=== PATIENT | male | born 1940 | race African-American/Black ===

== ENCOUNTER 2025-05-09 00:11 | Inpatient (IN) ==
[2025-05-09 00:47] LABS: Hematocrit (blood only) 43.4 % (42.0-52.0); Hemoglobin 14.7 g/dl (14.0-18.0); Immature Granulocytes # (auto) 0.02 K/uL (0.01-0.20); Immature Granulocytes % (auto) 0.2 %; Mean Corpuscular Hemoglobin 31.3 pg (25.0-34.0); Mean Corpuscular Volume 92.3 fL (80.0-100.0); Platelet Count 198 K/uL (130-400); RDW Standard Deviation 45.0 fL (36.4-46.3); Red Blood Count 4.70 M/uL (4.70-6.10); White Blood Count 8.71 K/ul (4.8-10.8)
[2025-05-09 01:03] LABS: Alanine Aminotransferase 14.0 U/L (7-52); Albumin Globulin Ratio 1.0 (0.9-2); Albumin Level 3.7 gm/dl (3.4-5.0); Alkaline Phosphatase 70.0 U/L (34-104); Anion Gap 10.0 (3-11); Bilirubin,Total 0.7 mg/dl (0.2-1.0); Blood Urea Nitrogen 19.0 mg/dl (6-23); Calcium 9.0 mg/dl (8.6-10.3); Carbon Dioxide 25.0 mmol/L (21-32); Chloride 102.0 mmol/L (98-107); Creatinine Clr Calc Pharmacy 40.2 ml/min; Globulin 3.6 gm/dl (2.5-4.0); Glucose 109.0 mg/dl (70-99(Fasting)); Lipase 10.0 U/L (11-82); Magnesium 1.7 mg/dl (1.7-2.4); Potassium 4.1 mmol/L (3.5-5.1); Sodium 137.0 mmol/L (136-145); Total Protein 7.3 gm/dl (6.0-8.3)
[2025-05-09] MEDS: SODIUM CHLORIDE 0.9% 1,000 ML IV ONE ×2 (01:03→05:05)
[2025-05-09] MEDS: MoRPHine SULFATE 2 MG/ML CARP IV STA (01:03)
[2025-05-09] MEDS: ONDANSETRON INJ 2 MG/ML 2 ML VIAL IV STA (01:03)
[2025-05-09] MEDS: OPTIRAY 320 100ml IV ONE (01:15)
[2025-05-09 01:17] LABS: INR 1.1 (0.9-1.1); Prothrombin Time 11.4 Seconds (9.0-12.0)
--- NOTE | 2025-05-09 01:35 | Emergency Department Note ---
Impression & Plan Hypertensive emergency, Abdominal pain, Nausea & vomiting, Elevated troponin ED Provider Note HISTORY OF PRESENT ILLNESS: Patient is an 84-year-old male presenting with abdominal pain, nausea and vomiting. Patient reports he has been having generalized abdominal pain and intermittent episodes of nausea and vomiting for the last 4 days. He denies any history of abdominal surgeries. He was given Zofran and fluids at the [facility] but had continued symptoms and was brought to the emergency department. Patient denies any chest pain or shortness of breath. He denies any DVT or PE history. Denies any history of cardiac stents. He rates his pain in the emergency department a 4 out of 10 and describes it as a pressure pain throughout his abdomen. He states that the pain is worse when he vomits. He states he has not had much to eat or drink in the last few days secondary to his nausea and vomiting. ROS: as above PHYSICAL EXAM: Constitutional: Patient appears in no acute distress. HENT: Head: Normocephalic and atraumatic. Eyes: EOMI, PERRL Mouth/Throat: Mucous membranes moist. Neck: Trachea midline. Neck supple. Cardiovascular: Tachycardic with regular rhythm. No murmurs, rubs or gallops. Intact distal pulses. Pulmonary/Chest: No respiratory distress. Breath sounds clear and equal bilaterally. No wheezes or rales. Abdominal: Abdomen soft, no rebound or guarding. Diffuse TTP Musculoskeletal: No edema, tenderness or deformity noted. Skin: Warm and dry. No rash, erythema, pallor or cyanosis Psychiatric: Appropriate mood and affect for situation. Neurological: Alert and keenly responsive. CN II-XII grossly intact, moving all extremities equally and fully. MDM: - Vitals signs showed hypertension and tachycardia - History obtained via patient. History as above. - Chronic conditions affecting care: HTN - Differential diagnoses include, but are not limited to: ACS; bowel obstruction; cholecystitis; appendicitis; colitis; viral syndrome; electrolyte abnormality; aortic dissection - Order placed for continuous cardiac monitoring. At this time, monitor showed rate of 110 bpm with normal sinus rhythm, per my interpretation. - External medical records reviewed. - EKG image interpreted by myself showed normal sinus rhythm. Rate 96 bpm. QT 348. No acute ischemic changes. - Laboratory workup interpreted by myself showed normal WBC; normal PT/INR; elevated creatinine (Cr 1.41 - uknown baseline); elevated troponin (90.8); normal lactate - CT abdomen/pelvis with IV contrast showed prostatomegaly. Noted to have uniform wall thickening of the bladder concerning for prostatic obstruction. Cecum is distended with fecal and gaseous loading with the distal colon fecally loaded. No bowel obstruction present. - UA negative for infection - Repeat troponin elevated but downtrending at 82.6 - Patient given 4 mg IV zofran, 1L NS and 4 mg IV morphine in ER. - On reassessment, his abdominal pain has improved, but he is noted to be profoundly hypertensive, with systolic blood pressures of over 200 systolic. He is started on a Cardene drip with improvement of his pressures to 160-180. Patient does have evidence of endorgan damage from his hypertension, given his elevated troponin and elevated creatinine. Will admit to hospitalist service. - Discussion was had with case technician about patient's case and need for admission - Hospitalist, Dr. Barajas, consulted for admission at 03:00 - Patient admitted to [facility] hospitalist service for further evaluation and management. I have personally spent 61 minutes of critical care time in the direct management of this patient. This includes bedside care, interpretation of diagnostic studies, and testing, discussion with consultants, patient, and family members, and other required patient management activities. This 61 minutes is in excess of all separately billable procedures. ASSESSMENT AND PLAN: Diagnosis: hypertensive emergency; abdominal pain; nausea and vomiting; elevated troponin Plan: admit Past Med/Surg History Problem List (Updated 05/09/25 @ 02:51 by Analilia Dent MD) Elevated troponin (Acute) Nausea & vomiting (Acute) Abdominal pain (Acute) Hypertensive emergency (Acute) Social History Smoking Status: Former smoker Preferred Language: Italian Feels Safe at Home: Yes Allergies Allergies Allergy/AdvReac Type Severity Reaction Status Date / Time No Known Allergies Allergy Verified 05/09/25 00:42 Home Meds Home Medications Medication Instructions Recorded Confirmed abacavir 600 mg-dolutegravir 50 1 tab PO DAILY 09/01/23 05/09/25 mg-lamivudine 300 mg tablet (Triumeq) aspirin 81 mg capsule 81 mg PO DAILY 09/01/23 05/09/25 cholecalciferol (vitamin D3) 25 50 mcg PO DAILY 09/01/23 05/09/25 mcg (1,000 unit) capsule levothyroxine 75 mcg capsule 75 mcg PO DAILY 09/01/23 05/09/25 lisinopril 20 mg tablet 20 mg PO DAILY 09/01/23 05/09/25 pravastatin 20 mg tablet 20 mg PO HS 09/01/23 05/09/25 tamsulosin 0.4 mg capsule 0.8 mg PO HS 09/01/23 05/09/25 lidocaine 5 % topical ointment 1 applic topical BID 05/09/25 05/09/25 meloxicam 7.5 mg tablet 7.5 mg PO BID 05/09/25 05/09/25 methyl salicylate-menthol 29 %-7.6 1 applic topical BID PRN Pain 05/09/25 05/09/25 % topical ointment (Icy Hot) multivitamin-minerals 1 tab PO DAILY 05/09/25 05/09/25 no.36-iron,carbonyl-FA 16 mg iron-0.38 mg tablet vitamin A and D 1 applic topical BID 05/09/25 05/09/25 Results & Data (ED) Vital Signs Vital Signs - 24 hr 05/09/25 00:14 05/09/25 01:42 05/09/25 01:52 Temperature 36.5 C Temperature Source Temporal Artery Scan Pulse Rate 111 H 107 H 105 H Pulse Rate from SpO2 Sensor 106 H Respiratory Rate 20 19 Respiratory Depth Normal Blood Pressure 214/98 H Blood Pressure Mean 136 Pulse Oximetry 100 95 Oxygen Delivery Method Room Air Sepsis Recent Fever Within 48 Hours No Sepsis New/Unexplained Change in Mental Status N/A Sepsis Action Taken by Nursing No Action Required 05/09/25 01:53 05/09/25 01:53 05/09/25 01:54 Temperature Temperature Source Pulse Rate 109 H Pulse Rate from SpO2 Sensor 110 H Respiratory Rate 18 Respiratory Depth Blood Pressure 207/120 H 207/120 H Blood Pressure Mean 128 128 Pulse Oximetry 98 Oxygen Delivery Method Sepsis Recent Fever Within 48 Hours Sepsis New/Unexplained Change in Mental Status Sepsis Action Taken by Nursing 05/09/25 01:57 05/09/25 02:12 05/09/25 02:30 Temperature Temperature Source Pulse Rate 107 H 103 H 102 H Pulse Rate from SpO2 Sensor 102 H Respiratory Rate 19 20 21 Respiratory Depth Blood Pressure 205/108 H 191/101 H 161/102 H Blood Pressure Mean 140 131 121 Pulse Oximetry 97 96 Oxygen Delivery Method Sepsis Recent Fever Within 48 Hours Sepsis New/Unexplained Change in Mental Status Sepsis Action Taken by Nursing 05/09/25 02:30 05/09/25 02:30 05/09/25 02:33 Temperature Temperature Source Pulse Rate 113 H Pulse Rate from SpO2 Sensor 110 H Respiratory Rate 21 Respiratory Depth Blood Pressure 161/102 H 161/102 H Blood Pressure Mean 118 118 Pulse Oximetry 93 Oxygen Delivery Method Sepsis Recent Fever Within 48 Hours Sepsis New/Unexplained Change in Mental Status Sepsis Action Taken by Nursing Laboratory Data 05/09/25 00:18 05/09/25 00:18 Lab Results 05/09/25 05/09/25 05/09/25 Range/Units 00:18 00:30 01:22 WBC 8.71 (4.8-10.8) K/ul RBC 4.70 (4.70-6.10) M/uL Hgb 14.7 (14.0-18.0) g/dl Hct 43.4 (42.0-52.0) % MCV 92.3 (80.0-100.0) fL MCH 31.3 (25.0-34.0) pg MCHC 33.9 (32.0-36.0) g/dL RDW Std Deviation 45.0 (36.4-46.3) fL RDW Coeff of Shelia 13.2 (11.5-14.5) % Plt Count 198 (130-400) K/uL MPV 9.6 (9.4-12.4) fL Immature Gran % (Auto) 0.2 % Neut % (Auto) 79.7 % Lymph % (Auto) 12.1 % Sauk % (Auto) 7.9 % Eos % (Auto) 0.0 % Baso % (Auto) 0.1 % Neut # (Auto) 6.94 H (1.40-6.50) K/uL Lymph # (Auto) 1.05 L (1.20-3.40) K/uL [place] # (Auto) 0.69 H (0.11-0.59) K/uL Eos # (Auto) 0.00 (0.00-0.50) K/uL Baso # (Auto) 0.01 (0.00-0.20) K/uL Immature Gran # (Auto) 0.02 (0.01-0.20) K/uL PT 11.4 (9.0-12.0) Seconds INR 1.1 (0.9-1.1) Sodium 137 (136-145) mmol/L Potassium 4.1 (3.5-5.1) mmol/L Chloride 102 (98-107) mmol/L Carbon Dioxide 25 (21-32) mmol/L Anion Gap 10 (3-11) BUN 19 (6-23) mg/dl Creatinine 1.41 H (0.6-1.4) mg/dl Est Cr Clr Drug Dosing 40.2 ml/min eGFR 49.14 BUN/Creatinine Ratio 13.5 (10-20) Glucose 109 H (70-99(Fasting)) mg/dl Lactate 1.5 (0.4-2.0) mmol/L Calcium 9.0 (8.6-10.3) mg/dl Magnesium 1.7 (1.7-2.4) mg/dl Total Bilirubin 0.7 (0.2-1.0) mg/dl AST 23 (13-39) U/L ALT 14 (7-52) U/L Alkaline Phosphatase 70 (34-104) U/L Troponin I High Sens 90.8 H* (0-20) pg/ml Total Protein 7.3 (6.0-8.3) gm/dl Albumin 3.7 (3.4-5.0) gm/dl Globulin 3.6 (2.5-4.0) gm/dl Albumin/Globulin Ratio 1.0 (0.9-2) Lipase 10 L (11-82) U/L Urine Color Yellow Urine Appearance Clear (Clear) Urine pH 7.0 (4.5-7.5) Ur Specific [place] 1.015 (1.000-1.030) Urine Protein 1+ H (Negative) Urine Glucose (UA) Negative (Negative) Urine Ketones 1+ H (Negative) Urine Blood Trace H (Negative) Urine Nitrite Negative (Negative) Urine Bilirubin Negative (Negative) Urine Urobilinogen Negative (Negative) Ur Leukocyte Esterase Negative (Negative) Urine WBC (Auto) 0-5 (0-5) /hpf Urine RBC (Auto) 0-2 (0-2) /hpf U Hyaline Cast (Auto) 0-2 (0-2) /lpf U Epithel Cells (Auto) 0-2 (0-2) /hpf Urine Bacteria (Auto) None Seen (None Seen) Urine Comment 05/09/25 Range/Units 02:11 WBC (4.8-10.8) K/ul RBC (4.70-6.10) M/uL Hgb (14.0-18.0) g/dl Hct (42.0-52.0) % MCV (80.0-100.0) fL MCH (25.0-34.0) pg MCHC (32.0-36.0) g/dL RDW Std Deviation (36.4-46.3) fL RDW Coeff of Shelia (11.5-14.5) % Plt Count (130-400) K/uL MPV (9.4-12.4) fL Immature Gran % (Auto) % Neut % (Auto) % Lymph % (Auto) % [place] % (Auto) % Eos % (Auto) % Baso % (Auto) % Neut # (Auto) (1.40-6.50) K/uL Lymph # (Auto) (1.20-3.40) K/uL [place] # (Auto) (0.11-0.59) K/uL Eos # (Auto) (0.00-0.50) K/uL Baso # (Auto) (0.00-0.20) K/uL Immature Gran # (Auto) (0.01-0.20) K/uL PT (9.0-12.0) Seconds INR (0.9-1.1) Sodium (136-145) mmol/L Potassium (3.5-5.1) mmol/L Chloride (98-107) mmol/L Carbon Dioxide (21-32) mmol/L Anion Gap (3-11) BUN (6-23) mg/dl Creatinine (0.6-1.4) mg/dl Est Cr Clr Drug Dosing ml/min eGFR BUN/Creatinine Ratio (10-20) Glucose (70-99(Fasting)) mg/dl Lactate (0.4-2.0) mmol/L Calcium (8.6-10.3) mg/dl Magnesium (1.7-2.4) mg/dl Total Bilirubin (0.2-1.0) mg/dl AST (13-39) U/L ALT (7-52) U/L Alkaline Phosphatase (34-104) U/L Troponin I High Sens 82.6 H* (0-20) pg/ml Total Protein (6.0-8.3) gm/dl Albumin (3.4-5.0) gm/dl Globulin (2.5-4.0) gm/dl Albumin/Globulin Ratio (0.9-2) Lipase (11-82) U/L Urine Color Urine Appearance (Clear) Urine pH (4.5-7.5) Ur Specific [place] (1.000-1.030) Urine Protein (Negative) Urine Glucose (UA) (Negative) Urine Ketones (Negative) Urine Blood (Negative) Urine Nitrite (Negative) Urine Bilirubin (Negative) Urine Urobilinogen (Negative) Ur Leukocyte Esterase (Negative) Urine WBC (Auto) (0-5) /hpf Urine RBC (Auto) (0-2) /hpf U Hyaline Cast (Auto) (0-2) /lpf U Epithel Cells (Auto) (0-2) /hpf Urine Bacteria (Auto) (None Seen) Urine Comment Administered Medications Nicardipine HCl 25 mg/ Sodium (Chloride) 250 mls @ 50 mls/hr IV .Q5H [facility]; Protocol Stop: 06/08/25 01:29 Last Titration: 05/09/25 03:08 Dose: 0 mg/hr, 0 mls/hr Documented By: Titration: 05/09/25 02:53 Dose: 5 mg/hr, 50 mls/hr Documented By: Titration: 05/09/25 02:09 Dose: 7.5 mg/hr, 75 mls/hr Documented By: Admin: 05/09/25 01:38 Dose: 5 mg/hr, 50 mls/hr Documented By: MARIANO Co-signed By: ANNMARIE Discontinued Medications Sodium Chloride (Nss) 1,000 mls @ 999 mls/hr IV .Q1H1M ONE Stop: 05/09/25 01:57 Last Infusion: 05/09/25 02:09 Dose: Infused Documented By: Admin: 05/09/25 01:03 Dose: 999 mls/hr Documented By: MARIANO Ioversol (Optiray 320 100ml) 94 ml IV ONCE ONE Stop: 05/09/25 01:15 Last Admin: 05/09/25 01:15 Dose: 94 ml Documented By: SH Miscellaneous (Stat Iv Infusion Titration Per Protocol) 1 each N/A NOW STA Stop: 05/09/25 01:26 Last Admin: 05/09/25 02:09 Dose: Not Given Documented By: MARIANO Morphine Sulfate (Morphine Sulfate 2 Mg/Ml Carp) 1 mg IV NOW STA Stop: 05/09/25 00:58 Last Admin: 05/09/25 01:03 Dose: 1 mg Documented By: MARIANO Ondansetron HCl (Ondansetron Inj 2 Mg/Ml 2 Ml Vial) 4 mg IV NOW STA Stop: 05/09/25 00:58 Last Admin: 05/09/25 01:03 Dose: 4 mg Documented By: MARIANO Imaging Data Radiologist's Impression: Abdomen/Pelvis CT 05/09/25 00:56 EXAM: CT abd pelvis IV con only CLINICAL HISTORY: lower abd pain; N/V. TECHNIQUE: Multiple contiguous axial images were obtained from the level of the diaphragm to the pubic symphysis. This study was acquired after the IV administration of iodinated contrast material, given the patient?s indications for the examination. If IV contrast material had not been administered, the likelihood of detecting abnormalities relevant to the patient?s condition would have been substantially decreased. Coronal and sagittal reformatted images were generated and reviewed to improve anatomic localization and optimize lesion detection. The CT scan was performed according to ALARA (as low as reasonably achievable). COMPARISON: None. FINDINGS: The visualized lung bases are clear. ABDOMEN/PELVIS: The liver is normal in size and attenuation. No focal liver lesions are seen. There is no intrahepatic or extrahepatic biliary ductal dilatation. The hepatic vasculature is patent. The gallbladder is unremarkable. The spleen, pancreas, and adrenal glands are unremarkable. The kidneys are normal in size and attenuation. There is no hydronephrosis or perinephric fat stranding. The ureters are normal in caliber and no ureteral calculi are seen. The bladder is normal in contour. The cecum is distended with fecal and gaseous loading. The appendix is not clearly delineated. There is redundant transverse and ascending colon. No adenopathy or fluid collections are seen. The aorta is normal in caliber. No aggressive-appearing osseous lesions are identified. Prostatomegaly is present, indenting the base of the urinary bladder. Mild uniform wall thickening of the urinary bladder is noted. Degenerative spine. IMPRESSION: Prostatomegaly indenting the base of the urinary bladder. Mild uniform wall thickening of the urinary bladder, likely secondary to chronic prostatic obstruction. The cecum is distended with fecal and gaseous loading. The distal colon is fecally loaded. Ileal loops are fluid filled. No evidence of bowel obstruction at present. Electronically signed by Jan Patton 05-09-2025 02:30 AM Discharge Plan Visit Data Chief Complaint: Abdominal Pain Stated Complaint: ABD PAIN, VOMIT ED Provider: Analilia Dent Discharge Problem: Hypertensive emergency, Abdominal pain, Nausea & vomiting, Elevated troponin Condition: Fair Forms Stand Alone Forms: My [facility] Prescriptions Prescriptions: No Action cholecalciferol (vitamin D3) 25 mcg (1,000 unit) capsule 50 mcg PO DAILY tamsulosin 0.4 mg capsule 0.8 mg PO HS pravastatin 20 mg tablet 20 mg PO HS lisinopril 20 mg tablet 20 mg PO DAILY levothyroxine 75 mcg capsule 75 mcg PO DAILY aspirin 81 mg capsule 81 mg PO DAILY Triumeq 600-50-300 mg tablet 1 tab PO DAILY vitamin A and D Ointment 1 applic TOPICAL BID meloxicam 7.5 mg Tablet 7.5 mg PO BID lidocaine 5 % Ointment 1 applic TOPICAL BID Icy Hot 29-7.6 % Ointment 1 applic TOPICAL BID PRN (Reason: Pain) mv-min no.36-iron,carbonyl-FA 16 mg iron- 0.38 mg Tablet 1 tab PO DAILY Referrals Referrals: Vanessa GALAN [Primary Care Provider] -
[2025-05-09 01:48] LABS: Appearance Urine Clear (Clear); Bacteria Urine Automated None Seen (None Seen); Cast Urine Automated 0-2 /lpf (0-2); Epithelial Cell Urine Auto 0-2 /hpf (0-2); Glucose Urine UA Negative (Negative); RBC Urine Automated 0-2 /hpf (0-2); WBC Urine Automated 0-5 /hpf (0-5)
[2025-05-09] MEDS: STAT IV Infusion **Titration per Protocol STA (02:09)
--- NOTE | 2025-05-09 02:30 | CT Scan Report ---
EXAM: CT abd pelvis IV con only CLINICAL HISTORY: lower abd pain; N/V. TECHNIQUE: Multiple contiguous axial images were obtained from the level of the diaphragm to the pubic symphysis. This study was acquired after the IV administration of iodinated contrast material, given the patient?s indications for the examination. If IV contrast material had not been administered, the likelihood of detecting abnormalities relevant to the patient?s condition would have been substantially decreased. Coronal and sagittal reformatted images were generated and reviewed to improve anatomic localization and optimize lesion detection. The CT scan was performed according to ALARA (as low as reasonably achievable). COMPARISON: None. FINDINGS: The visualized lung bases are clear. ABDOMEN/PELVIS: The liver is normal in size and attenuation. No focal liver lesions are seen. There is no intrahepatic or extrahepatic biliary ductal dilatation. The hepatic vasculature is patent. The gallbladder is unremarkable. The spleen, pancreas, and adrenal glands are unremarkable. The kidneys are normal in size and attenuation. There is no hydronephrosis or perinephric fat stranding. The ureters are normal in caliber and no ureteral calculi are seen. The bladder is normal in contour. The cecum is distended with fecal and gaseous loading. The appendix is not clearly delineated. There is redundant transverse and ascending colon. No adenopathy or fluid collections are seen. The aorta is normal in caliber. No aggressive-appearing osseous lesions are identified. Prostatomegaly is present, indenting the base of the urinary bladder. Mild uniform wall thickening of the urinary bladder is noted. Degenerative spine. IMPRESSION: Prostatomegaly indenting the base of the urinary bladder. Mild uniform wall thickening of the urinary bladder, likely secondary to chronic prostatic obstruction. The cecum is distended with fecal and gaseous loading. The distal colon is fecally loaded. Ileal loops are fluid filled. No evidence of bowel obstruction at present. Electronically signed by Jan Patton 05-09-2025 02:30 AM
[2025-05-09] MEDS: METOPROLOL TARTRATE 1 MG/ML VIAL IV STA (03:32)
[2025-05-09] MEDS: MAGNESIUM SULFATE / D5W 1 GM/100 ML BAG IV SCH (03:32)
--- NOTE | 2025-05-09 03:48 | History & Physical Report ---
Date of Service May 09, 2025 Assessment & Plan (1) Hypertensive crisis: Plan: Assessment and plan below following discussion of case with ED provider and reviewing patient history/pertinent normal/abnormal diagnostic test results. Hypertensive crisis Secondary to GI upset Troponin elevation secondary to above in the setting of chronic kidney dysfunction hyperlipidemia, on statin Rx HIV disease, stable on regimen hypothyroidism, euthyroid as of today's TSH OBS Admit to PCU Stop nicardipine drip IV Lopressor 1 dose now given tachycardia followed by addition of amlodipine to regimen Follow troponin, TTE for progression DVT prophylaxis with heparin subcu DNR as per patient prior directives Text document was generated using [employer] voice recognition software. It may contain grammatical or spelling errors. Kindly contact undersigned for clarification of any documentation item in question. History of Present Illness Chief Complaint: Abdominal pain, nausea, vomiting Primary Care Provider: ANGELIA Mendez History obtained from patient and records. Medical history significant for hypertension, hyperlipidemia, HIV disease, CRI (baseline creatinine 1.5), hypothyroidism, GERD, BPH, atopic dermatitis. 3 days history of achy abdominal pain associated with some change in bowel habits, nausea, vomiting. No fever, no chills. Patient denies headache, chest pain, SOB. Dizziness symptoms. SBP 200s at the [facility]. Patient directed to ER for evaluation. Nicardipine drip initiated at the ER. SBP currently 160s. 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 Allergies Allergy/AdvReac Type Severity Reaction Status Date / Time No Known Allergies Allergy Verified 05/09/25 00:42 Home Medications Medication Instructions Recorded Confirmed Type abacavir 600 mg-dolutegravir 50 1 tab PO DAILY 09/01/23 05/09/25 History mg-lamivudine 300 mg tablet (Triumeq) cholecalciferol (vitamin D3) 25 50 mcg PO DAILY 09/01/23 05/09/25 History mcg (1,000 unit) capsule levothyroxine 75 mcg capsule 75 mcg PO DAILY 09/01/23 05/09/25 History lisinopril 20 mg tablet 20 mg PO DAILY 09/01/23 05/09/25 History pravastatin 20 mg tablet 20 mg PO HS 09/01/23 05/09/25 History tamsulosin 0.4 mg capsule 0.8 mg PO HS 09/01/23 05/09/25 History lidocaine 5 % topical ointment 1 applic topical BID 05/09/25 05/09/25 History meloxicam 7.5 mg tablet 7.5 mg PO BID 05/09/25 05/09/25 History methyl salicylate-menthol 29 %-7.6 1 applic topical BID PRN Pain 05/09/25 05/09/25 History % topical ointment (Icy Hot) multivitamin-minerals 1 tab PO DAILY 05/09/25 05/09/25 History no.36-iron,carbonyl-FA 16 mg iron-0.38 mg tablet vitamin A and D 1 applic topical BID 05/09/25 05/09/25 History Past Med/Surg History Problem List (Updated 05/09/25 @ 07:46 by Vladimir Barajas MD) Hypertensive crisis Elevated troponin (Acute) Nausea & vomiting (Acute) Abdominal pain (Acute) Hypertensive emergency (Acute) Social History Smoking Status: Former smoker Hx Alcohol Use: No (incarcerated) Hx Substance Use: No (incarcerated) Preferred Language: Kinyarwanda Research Development Director Required: No Beliefs That Will Affect Care: None Current Living Situation: Other Current Living Situation Comment: [facility] Other Information That Helps Us Care for You: No Feels Safe at Home: Yes Safety Concerns: Feels Safe At This Time Review of Systems Review of Systems: As per HPI, all other systems reviewed and negative Physical Exam Physical Exam: GENERAL: Comfortable, pleasant, no respiratory distress SKIN: Normal color, warm HEENT: [employer] palpebral conjunctivae, no ptosis, dry buccal mucosa NECK : Supple, no tenderness CHEST : CTA, no tenderness HEART : Tachycardic, no obvious murmurs ABDOMEN: Some distention, minimal epigastric tenderness EXTREMITIES : No LE swelling/tenderness, palpable pulses, no other conspicuous deformities noted NEUROLOGIC : Coherent, no facial asymmetry, no other gross focality Results & Data Results & Data Vital Signs (Past 12 Hours) Vital Signs Temp Pulse Resp BP Pulse Ox O2 Del Method 05/09/25 02:33 113 H 21 93 05/09/25 02:30 161/102 H 05/09/25 02:30 161/102 H 05/09/25 02:30 102 H 21 161/102 H 96 05/09/25 02:12 103 H 20 191/101 H 97 05/09/25 01:57 107 H 19 205/108 H 05/09/25 01:54 109 H 18 98 05/09/25 01:53 207/120 H 05/09/25 01:53 207/120 H 05/09/25 01:52 105 H 05/09/25 01:42 107 H 19 95 05/09/25 00:14 36.5 C 111 H 20 214/98 H 100 Room Air Laboratory Results Laboratory Results WBC 8.71 K/ul (4.8-10.8) 05/09/25 00:18 RBC 4.70 M/uL (4.70-6.10) 05/09/25 00:18 Hgb 14.7 g/dl (14.0-18.0) 05/09/25 00:18 Hct 43.4 % (42.0-52.0) 05/09/25 00:18 MCV 92.3 fL (80.0-100.0) 05/09/25 00:18 MCH 31.3 pg (25.0-34.0) 05/09/25 00:18 MCHC 33.9 g/dL (32.0-36.0) 05/09/25 00:18 RDW Std Deviation 45.0 fL (36.4-46.3) 05/09/25 00:18 RDW Coeff of Shelia 13.2 % (11.5-14.5) 05/09/25 00:18 Plt Count 198 K/uL (130-400) 05/09/25 00:18 MPV 9.6 fL (9.4-12.4) 05/09/25 00:18 Immature Gran % (Auto) 0.2 % 05/09/25 00:18 Neut % (Auto) 79.7 % 05/09/25 00:18 Lymph % (Auto) 12.1 % 05/09/25 00:18 [place] % (Auto) 7.9 % 05/09/25 00:18 Eos % (Auto) 0.0 % 05/09/25 00:18 Baso % (Auto) 0.1 % 05/09/25 00:18 Neut # (Auto) 6.94 K/uL (1.40-6.50) H 05/09/25 00:18 Lymph # (Auto) 1.05 K/uL (1.20-3.40) L 05/09/25 00:18 [place] # (Auto) 0.69 K/uL (0.11-0.59) H 05/09/25 00:18 Eos # (Auto) 0.00 K/uL (0.00-0.50) 05/09/25 00:18 Baso # (Auto) 0.01 K/uL (0.00-0.20) 05/09/25 00:18 Immature Gran # (Auto) 0.02 K/uL (0.01-0.20) 05/09/25 00:18 PT 11.4 Seconds (9.0-12.0) 05/09/25 00:18 INR 1.1 (0.9-1.1) 05/09/25 00:18 Sodium 137 mmol/L (136-145) 05/09/25 00:18 Potassium 4.1 mmol/L (3.5-5.1) 05/09/25 00:18 Chloride 102 mmol/L (98-107) 05/09/25 00:18 Carbon Dioxide 25 mmol/L (21-32) 05/09/25 00:18 Anion Gap 10 (3-11) 05/09/25 00:18 BUN 19 mg/dl (6-23) 05/09/25 00:18 Creatinine 1.41 mg/dl (0.6-1.4) H 05/09/25 00:18 Est Cr Clr Drug Dosing 40.2 ml/min 05/09/25 00:18 eGFR 49.14 05/09/25 00:18 BUN/Creatinine Ratio 13.5 (10-20) 05/09/25 00:18 Glucose 109 mg/dl (70-99(Fasting)) H 05/09/25 00:18 Lactate 1.5 mmol/L (0.4-2.0) 05/09/25 00:30 Calcium 9.0 mg/dl (8.6-10.3) 05/09/25 00:18 Magnesium 1.7 mg/dl (1.7-2.4) 05/09/25 00:18 Total Bilirubin 0.7 mg/dl (0.2-1.0) 05/09/25 00:18 AST 23 U/L (13-39) 05/09/25 00:18 ALT 14 U/L (7-52) 05/09/25 00:18 Alkaline Phosphatase 70 U/L (34-104) 05/09/25 00:18 Troponin I High Sens 82.6 pg/ml (0-20) H* 05/09/25 02:11 Total Protein 7.3 gm/dl (6.0-8.3) 05/09/25 00:18 Albumin 3.7 gm/dl (3.4-5.0) 05/09/25 00:18 Globulin 3.6 gm/dl (2.5-4.0) 05/09/25 00:18 Albumin/Globulin Ratio 1.0 (0.9-2) 05/09/25 00:18 Lipase 10 U/L (11-82) L 05/09/25 00:18 Urine Color Yellow 05/09/25 01:22 Urine Appearance Clear (Clear) 05/09/25 01:22 Urine pH 7.0 (4.5-7.5) 05/09/25 01:22 Ur Specific [place] 1.015 (1.000-1.030) 05/09/25 01:22 Urine Protein 1+ (Negative) H 05/09/25 01:22 Urine Glucose (UA) Negative (Negative) 05/09/25 01:22 Urine Ketones 1+ (Negative) H 05/09/25 01:22 Urine Blood Trace (Negative) H 05/09/25 01:22 Urine Nitrite Negative (Negative) 05/09/25 01:22 Urine Bilirubin Negative (Negative) 05/09/25 01:22 Urine Urobilinogen Negative (Negative) 05/09/25 01:22 Ur Leukocyte Esterase Negative (Negative) 05/09/25 01:22 Urine WBC (Auto) 0-5 /hpf (0-5) 05/09/25 01:22 Urine RBC (Auto) 0-2 /hpf (0-2) 05/09/25 01:22 U Hyaline Cast (Auto) 0-2 /lpf (0-2) 05/09/25 01:22 U Epithel Cells (Auto) 0-2 /hpf (0-2) 05/09/25 01:22 Urine Bacteria (Auto) None Seen (None Seen) 05/09/25 01:22 Urine Comment 05/09/25 01:22 Impressions Abdomen/Pelvis CT 05/09/25 00:56 EXAM: CT abd pelvis IV con only CLINICAL HISTORY: lower abd pain; N/V. TECHNIQUE: Multiple contiguous axial images were obtained from the level of the diaphragm to the pubic symphysis. This study was acquired after the IV administration of iodinated contrast material, given the patient?s indications for the examination. If IV contrast material had not been administered, the likelihood of detecting abnormalities relevant to the patient?s condition would have been substantially decreased. Coronal and sagittal reformatted images were generated and reviewed to improve anatomic localization and optimize lesion detection. The CT scan was performed according to ALARA (as low as reasonably achievable). COMPARISON: None. FINDINGS: The visualized lung bases are clear. ABDOMEN/PELVIS: The liver is normal in size and attenuation. No focal liver lesions are seen. There is no intrahepatic or extrahepatic biliary ductal dilatation. The hepatic vasculature is patent. The gallbladder is unremarkable. The spleen, pancreas, and adrenal glands are unremarkable. The kidneys are normal in size and attenuation. There is no hydronephrosis or perinephric fat stranding. The ureters are normal in caliber and no ureteral calculi are seen. The bladder is normal in contour. The cecum is distended with fecal and gaseous loading. The appendix is not clearly delineated. There is redundant transverse and ascending colon. No adenopathy or fluid collections are seen. The aorta is normal in caliber. No aggressive-appearing osseous lesions are identified. Prostatomegaly is present, indenting the base of the urinary bladder. Mild uniform wall thickening of the urinary bladder is noted. Degenerative spine. IMPRESSION: Prostatomegaly indenting the base of the urinary bladder. Mild uniform wall thickening of the urinary bladder, likely secondary to chronic prostatic obstruction. The cecum is distended with fecal and gaseous loading. The distal colon is fecally loaded. Ileal loops are fluid filled. No evidence of bowel obstruction at present. Electronically signed by Jan Patton 05-09-2025 02:30 AM Diagnostic Findings EKG as per my interpretation : rate 100, NSR, normal axis, no ischemia
[2025-05-09] MEDS ORDERED: HYDROmorphone INJ 0.5 MG/0.5 ML SYR IV PRN (03:53)
[2025-05-09] MEDS ORDERED: PROMETHAZINE 6.25 MG/50.25 ML BAG IV PRN (03:53)
[2025-05-09] MEDS ORDERED: ACETAMINOPHEN 325 MG TAB PO PRN (03:53)
[2025-05-09] MEDS ORDERED: POLYETHYLENE (MIRALAX) 17 GM PACK PO PRN (03:54)
--- NOTE | 2025-05-09 03:55 | XRay Report ---
EXAM: XR chest 1V portable CLINICAL HISTORY: Renal failure TECHNIQUE: An X-ray image of the chest was obtained in the AP projection. COMPARISON: No prior studies are available for comparison. FINDINGS: Pulmonary Parenchyma: The lungs are clear bilaterally. There is no evidence of consolidation, collapse, or focal opacities. No pulmonary nodules are identified. There is no evidence of pleural effusion or pleural thickening. Heart and Mediastinum: The heart size and shape are normal. There is no mediastinal widening or masses. No hilar or mediastinal lymphadenopathy is present. Bony Thorax: The bony thorax appears intact without fractures or deformities. Soft Tissues: The soft tissues overlying the chest wall are unremarkable. IMPRESSION: No acute cardiopulmonary abnormalities are identified. Electronically signed by Jose Perea 05-09-2025 03:54 AM
[2025-05-09 04:29] LABS: Thyroid Stimulating Hormone 2.376 uIu/ml (0.300-4.500)
[2025-05-09] MEDS: HEPARIN SOD 5,000 UNIT/0.5 ML VIAL SQ SCH (06:13)
[2025-05-09] MEDS: CEROVITE ADV FORMULA TAB PO SCH (07:58)
[2025-05-09] MEDS: CHOLECALCIFEROL 25 MCG (1000 UNITS) TAB PO SCH (07:58)
[2025-05-09] MEDS: LEVOTHYROXINE SODIUM 75 MCG TABLET PO SCH (07:59)
--- NOTE | 2025-05-09 09:40 | Electrocardiogram Report ---
Test Reason : Blood Pressure : */* mmHG Vent. Rate : 96 BPM Atrial Rate : 96 BPM P-R Int : 140 ms QRS Dur : 72 ms QT Int : 348 ms P-R-T Axes : 74 55 64 degrees QTcB Int : 439 ms Normal sinus rhythm Possible Left atrial enlargement Nonspecific ST abnormality Abnormal ECG No previous ECGs available Confirmed by Jevon Guthrie ([id number]) on 05/09/2025 9:40:11 AM Referred By: [facility] Confirmed By: Jevon Guthrie
[2025-05-09] MEDS: LABETALOL HCL IV 5 MG/ML 20ML IV STA ×2 (15:03→19:59)
--- NOTE | 2025-05-09 15:52 | Communication Note ---
Date of Service: May 09, 2025 admitted with nausea and hypertensive crisis patient reports he doesn't take his lisinopril at the long-term states he doesn't recall being told that he has HTN ever reports stomach discomfort improved, no further nausea Pressures still elevated exam unremarkable #Hypertensive urgency started briefly on nicardipine, discontinued resumed lisinopril, criminal judge added amlodipine Started Coreg bid Starting 12.5 chlorthalidone ECHO pending renal duplex ordered silvino/renin sent Follow renal function
[2025-05-09] MEDS: CHLORTHALIDONE 25 MG TAB PO SCH (15:56)
--- NOTE | 2025-05-09 16:21 | XCELERA ---
[id number]
[2025-05-09] MEDS: hydrALAZINE 10 MG TAB PO SCH (17:38)
[2025-05-09] MEDS ORDERED: STAT IV Infusion **Titration per Protocol STA (19:05)
[2025-05-09] MEDS ORDERED: LABETALOL HCL IV 5 MG/ML 20ML IV PRN (19:37)
[2025-05-09] MEDS: NITROGLYCERIN 2% OINTMENT 30GM TUBE EXT SCH ×2 (19:59→20:00)
[2025-05-09] MEDS: PRAVASTATIN SOD 20 MG TAB PO SCH (20:01)
[2025-05-09] MEDS: TAMSULOSIN HCL 0.4 MG CAP PO SCH (20:01)
--- NOTE | 2025-05-10 07:47 | Ultrasound Report ---
EXAM: US duplex renal art/vein BI CLINICAL HISTORY: Assess for renal stenosis. TECHNIQUE: Bilateral renal arterial duplex was performed; very limited visualization due to increased bowel gas. COMPARISON: Previous CT 05/09/2025. FINDINGS: Kidneys: The right kidney measures 9.9 cm, which is normal in size. Mild hydronephrosis was noted, as in the prior CT abdomen. The left kidney measures 9.5 cm, which is normal in size. No evidence of stones, cysts, or hydronephrosis. The bilateral cortex and pelvis are normal in size. No other significant pathology is seen. Perinephric fat, fluid, and adrenal glands appear unremarkable. Aorta: The mid-aorta diameter is within normal limits. Mid-aorta peak systolic velocity (PSV) is 80.7 cm/sec, which is within normal limits. No atherosclerotic changes are seen throughout the visualized abdominal aorta. Renal Arteries: Parameter Right Renal Artery (RRA) Left Renal Artery (LRA) Proximal PSV/EDV (cm/sec) Non-visualized Non-visualized Mid PSV/EDV (cm/sec) Non-visualized Non-visualized Distal PSV/EDV (cm/sec) 37.8 cm/sec 35 cm/sec Resistive Index (RI) RI: 0.68 RI: 0.68 Renal Artery/Aorta Ratio (RAR) 0.5 0.4 Reference data: 60% stenosis, RAR 3.1:1, renal artery PSV 180 cm/sec The renal artery/aorta ratio is within normal limits bilaterally. There is no detectable renal artery stenosis bilaterally. IMPRESSION: 1. No evidence of renal artery occlusive disease in both renal arteries. 2. Normal kidney size. 3. Mild right hydronephrosis was noted, as in the prior CT abdomen. Electronically signed by Jose Perea 05-10-2025 07:47 AM
[2025-05-10 08:59] LABS: Hematocrit (blood only) 44.7 % (42.0-52.0); Hemoglobin 15.3 g/dl (14.0-18.0); Immature Granulocytes # (auto) 0.04 K/uL (0.01-0.20); Immature Granulocytes % (auto) 0.4 %; Mean Corpuscular Hemoglobin 31.3 pg (25.0-34.0); Mean Corpuscular Volume 91.4 fL (80.0-100.0); Platelet Count 196 K/uL (130-400); RDW Standard Deviation 44.5 fL (36.4-46.3); Red Blood Count 4.89 M/uL (4.70-6.10); White Blood Count 10.06 K/ul (4.8-10.8)
--- NOTE | 2025-05-10 09:07 | Cardiology Consultation ---
Date of Consultation May 10, 2025 Assessment & Plan (1) Hypertensive emergency: (2) Elevated troponin: (3) Abdominal pain: (4) Nausea & vomiting: Plan Assessment: 84 year old male admitted from [facility] in the setting of abdominal pain, N/V and severely elevated blood pressure readings in the setting of acute illness and medication non-compliance. Plan: 1. Hypertensive emergency. 2. Elevated troponin -BP 214/98 at time of arrival. was placed on Nicardipine gtt, since discontinued -Patient denies any prior knowledge of HTN and therefore was not taking prescribed medications at [facility] -BP stable after administration of IV labetalol and initial Coreg dose. -Continue Lisinopril 20mg daily, Coreg 6.25mg PO BID and Chlorthalidone. -Currently receiving Hydralazine 10mg PO Q8H will discuss this with Dr. Sharpe as this may not be beneficial in the senior living setting and patient will not likely be compliant due to frequent dosing. -Mild troponin elevation in the absence of chest pain, with no acute EKG changes. Echo with no wall motion abnormalties. -Echocardiogram demonstrates preserved LVEF of 55-60%, Grade I diastolic dysfunction, mild TR, Mild AI, mild pulmonic valvular regurgitation and mild MR 3. Abdominal pain 4. Nausea and vomiting -Resolved per patient. Question viral etiology? -Continued management per Primary team Case has been discussed with Dr. Sharpe. Further recommendations regarding plan of care as per his assessment. I spent a total of 50 minutes on the date of service in preparation, delivery, documentation of the care provided to the patient excluding any time spent in the performance of separately billed services. RACHEAL Sim [facility] Cardiology [facility] Supervising Physician Co-Signing Physician Notes Patient seen and examined. Past medical history, surgical history, social history and family history have been reviewed. The medical record and all the above studies have been reviewed. Case DW PAUL including management. Hypertensive emergency - better Azotemia Elevated troponin - likely due to demand ischemia Abdominal pain - constipation HLD Hypothyroidism HIV correct and f/u electrolytes continue Coreg, Lisinopril DC chlorthalodone change Hydralazine to 25 mg po bid adjust anti-HTN meds keeping systolic BP between 100-140 mmHg salt restriction stable from cardiac standpoint please recall if needed will sign off History of Present Illness Reason for Consultation: HTN crisis Requesting Physician: [facility] hospitalist Attending Physician: Cielo Camara MD History of Present Illness HPI: Patient is a 84 year old male with HTN, HLD, HIV+, CRI (baseline cr 1.5), hypothyroidism, GERD, BPH and atopic dermatitis that presented to the ER from [facility] with 3 day history of abdominal "achiness", N/V/D. No fevers, or chills, but does endorse dizziness. [employer] reported a systolic BP in the 200s. Patient was started on a Nicardipine drip in the ER. (since discontinued) Patient is non-compliant with home medication regimen because he had reported to staff that he was never told he had HTN. EKG on admission NSR, nonspecific ST Abnormality Rate 96bpm, QTC 439ms Troponin 90.8/82.6 Upon seeing patient today he is resting in bed without any acute concerns. Denies any chest pain, pressure, palpitations, shortness of breath, PND, pre- syncope, syncope or edema REview of telemetry shows SR rates 90's no acute events overnight. Allergies Allergy/AdvReac Type Severity Reaction Status Date / Time No Known Allergies Allergy Verified 05/09/25 00:42 Home Medications Medication Instructions Recorded Confirmed Type abacavir 600 mg-dolutegravir 50 1 tab PO DAILY 09/01/23 05/09/25 History mg-lamivudine 300 mg tablet (Triumeq) cholecalciferol (vitamin D3) 25 50 mcg PO DAILY 09/01/23 05/09/25 History mcg (1,000 unit) capsule levothyroxine 75 mcg capsule 75 mcg PO DAILY 09/01/23 05/09/25 History lisinopril 20 mg tablet 20 mg PO DAILY 09/01/23 05/09/25 History pravastatin 20 mg tablet 20 mg PO HS 09/01/23 05/09/25 History tamsulosin 0.4 mg capsule 0.8 mg PO HS 09/01/23 05/09/25 History lidocaine 5 % topical ointment 1 applic topical BID 05/09/25 05/09/25 History meloxicam 7.5 mg tablet 7.5 mg PO BID 05/09/25 05/09/25 History methyl salicylate-menthol 29 %-7.6 1 applic topical BID PRN Pain 05/09/25 05/09/25 History % topical ointment (Icy Hot) multivitamin-minerals 1 tab PO DAILY 05/09/25 05/09/25 History no.36-iron,carbonyl-FA 16 mg iron-0.38 mg tablet vitamin A and D 1 applic topical BID 05/09/25 05/09/25 History Patient History Social History Smoking Status: Former smoker Hx Alcohol Use: No (incarcerated) Hx Substance Use: No (incarcerated) Preferred Language: Hebrew Communication Ability: Effective Store Protection Specialist Required: No Beliefs That Will Affect Care: None Current Living Situation: Other Current Living Situation Comment: [facility] Other Information That Helps Us Care for You: No Feels Safe at Home: Yes Safety Concerns: Feels Safe At This Time Review of Systems Review of Systems: All systems reviewed & are unremarkable except as noted in HPI & below Physical Exam Constitutional: well developed and well nourished; no acute distress and not ill appearing Neck: normal visual inspection and trachea midline Respiratory: normal respiratory effort, lungs clear to auscultation Cardiovascular: RRR, no murmur, no edema Rate/Rhythm: regular rate and regular rhythm Heart Sounds: normal S1 and normal S2; no murmur Vessels: dorsalis pedis pulses present; no JVD Extremities: no edema Skin: no rashes, warm and dry Psychiatric: Orientation: alert, oriented to person, oriented to place and cooperative Results & Data Vital Signs (Past 12 Hours) Vital Signs Temp Pulse Pulse Resp BP Pulse Ox O2 Del Method 05/10/25 08:03 36.4 C L 94 H 23 132/74 97 Nasal Cannula 05/10/25 05:59 90 127/73 05/10/25 02:11 36.8 C 94 H 18 153/84 H 95 Room Air 05/10/25 01:06 90 164/90 H 05/10/25 00:05 86 162/83 H 05/09/25 23:12 36.7 C 92 H 18 158/84 H 98 Room Air 05/09/25 22:45 90 05/09/25 22:05 157/83 H 05/09/25 21:24 Room Air 05/09/25 21:11 105 H 146/84 H O2 Flow Rate 05/10/25 08:03 3 05/10/25 05:59 05/10/25 02:11 05/10/25 01:06 05/10/25 00:05 05/09/25 23:12 05/09/25 22:45 05/09/25 22:05 05/09/25 21:24 05/09/25 21:11 Laboratory Results CBC 05/10/25 Range/Units 08:36 WBC 10.06 (4.8-10.8) K/ul RBC 4.89 (4.70-6.10) M/uL Hgb 15.3 (14.0-18.0) g/dl Hct 44.7 (42.0-52.0) % Plt Count 196 (130-400) K/uL Neut # (Auto) 7.97 H (1.40-6.50) K/uL Lymph # (Auto) 0.93 L (1.20-3.40) K/uL [place] # (Auto) 1.10 H (0.11-0.59) K/uL Eos # (Auto) 0.01 (0.00-0.50) K/uL Baso # (Auto) 0.01 (0.00-0.20) K/uL Comprehensive Metabolic Panel 05/10/25 Range/Units 08:27 Sodium 132 L (136-145) mmol/L Potassium 4.1 (3.5-5.1) mmol/L Chloride 101 (98-107) mmol/L Carbon Dioxide 19 L (21-32) mmol/L BUN 24 H (6-23) mg/dl Creatinine 1.65 H (0.6-1.4) mg/dl Glucose 100 H (70-99(Fasting)) mg/dl Calcium 8.3 L (8.6-10.3) mg/dl Intake and Output 05/09/25 05/10/25 05/10/25 22:59 06:59 14:59 Intake Total 200 / 531.667 Output Total 400 / 450 50 / 450 Balance -400 / 81.667 150 / 81.667 Intake: Oral 200 / 200 Output: Urine 400 / 450 50 / 450 Other: Weight 70.7 kg Weight Measurement Method Built in [facility] Diagnostic Findings Echocardiogram 05/09/25 LVEF 55-60% Grade I diastolic dysfunction MIld TR Mild AI Mild pulmonic valve regurgitation Mild MR PG Care Time/CCT Total # of Minutes Spent Total Time Spent with Patient: Total time spent is greater than 50% in coordination of care (as documented) at patient's floor/unit and/or counseling patient: Coding Level of Care Code 12958 IN/OBS CONSULT LVL 5,80M Diagnoses Hypertensive emergency I16.1 Elevated troponin R79.89 Abdominal pain R10.9 Nausea & vomiting R11.2
[2025-05-10 09:25] LABS: Anion Gap 12.0 (3-11); Calcium 8.3 mg/dl (8.6-10.3); Carbon Dioxide 19.0 mmol/L (21-32); Chloride 101.0 mmol/L (98-107); Potassium 4.1 mmol/L (3.5-5.1); Sodium 132.0 mmol/L (136-145)
[2025-05-10 09:31] LABS: Blood Urea Nitrogen 24.0 mg/dl (6-23); Creatinine Clr Calc Pharmacy 33.3 ml/min; Glucose 100.0 mg/dl (70-99(Fasting))
--- NOTE | 2025-05-10 12:32 | Hospitalist Progress Note ---
Date of Service May 10, 2025 Assessment & Plan (1) Hypertensive crisis: Plan: Mr. Mcguire is an 84 yo gentleman with medical history significant for hypertension, hyperlipidemia, HIV disease, CRI (baseline creatinine 1.5), hypothyroidism, GERD, BPH, atopic dermatitis admitted for hypertensive emergency. 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 and hydralazine Cardiology: discontinue chlorthalidone, bid dosing of hydral to encourage compliance CTM #CKDIII baseline 1.5 stop clorthalidone and monitor renal function encourage po intake trend bmp in am #Constipation #GI upset nasuea resolved, noted stool burden on imaging bisacodyl suppository now start senna #HLD continue statin #HIV disease, stable on regimen #hypothyroidism, euthyroid as of admission TSH DVT prophylaxis with heparin subcu DNR/DNI Admission and Anticipated Discharge Date Admission Date: May 09, 2025 Subjective required nitro paste over night 2/2 BP up to 200s...improved down to 120s-130s there after Denies chest pain, palpitations reports resolution of abdominal pain Physical Exam Constitutional: WD/WN, vitals as above Respiratory: normal respiratory effort, lungs clear to auscultation Cardiovascular: RRR, no murmur, no edema Gastrointestinal (Abdomen): normal bowel sounds, soft, nontender, no hepatosplenomegaly Results & Data Results & Data Vital Signs (Past 12 Hours) Vital Signs Temp Pulse Resp BP Pulse Ox O2 Del Method O2 Flow Rate 05/10/25 11:35 36.7 C 81 20 138/83 98 Room Air 05/10/25 08:03 36.4 C L 94 H 23 132/74 97 Nasal Cannula 3 05/10/25 05:59 90 127/73 05/10/25 02:11 36.8 C 94 H 18 153/84 H 95 Room Air 05/10/25 01:06 90 164/90 H Laboratory Results Short CBC 05/10/25 Range/Units 08:36 WBC 10.06 (4.8-10.8) K/ul Hgb 15.3 (14.0-18.0) g/dl Hct 44.7 (42.0-52.0) % Plt Count 196 (130-400) K/uL BMP 05/10/25 08:27 Sodium 132 L Potassium 4.1 Chloride 101 Carbon Dioxide 19 L BUN 24 H Creatinine 1.65 H Glucose 100 H Calcium 8.3 L Medications Administered Home Medications Medication Instructions Recorded Confirmed Last Taken abacavir 600 mg-dolutegravir 50 1 tab PO DAILY 09/01/23 05/09/25 Unknown mg-lamivudine 300 mg tablet (Triumeq) cholecalciferol (vitamin D3) 25 50 mcg PO DAILY 09/01/23 05/09/25 Unknown mcg (1,000 unit) capsule levothyroxine 75 mcg capsule 75 mcg PO DAILY 09/01/23 05/09/25 Unknown lisinopril 20 mg tablet 20 mg PO DAILY 09/01/23 05/09/25 Unknown pravastatin 20 mg tablet 20 mg PO HS 09/01/23 05/09/25 Unknown tamsulosin 0.4 mg capsule 0.8 mg PO HS 09/01/23 05/09/25 Unknown lidocaine 5 % topical ointment 1 applic topical BID 05/09/25 05/09/25 Unknown meloxicam 7.5 mg tablet 7.5 mg PO BID 05/09/25 05/09/25 Unknown methyl salicylate-menthol 29 %-7.6 1 applic topical BID PRN Pain 05/09/25 05/09/25 Unknown % topical ointment (Icy Hot) multivitamin-minerals 1 tab PO DAILY 05/09/25 05/09/25 Unknown no.36-iron,carbonyl-FA 16 mg iron-0.38 mg tablet vitamin A and D 1 applic topical BID 05/09/25 05/09/25 Unknown Active Medications Generic Name Dose Route Start Last Admin Trade Name Freq PRN Reason Stop Dose Admin Carvedilol 6.25 mg 05/09/25 17:00 05/10/25 09:03 Carvedilol 6.25 Mg Tab PO 06/08/25 16:59 6.25 mg BIDM SOLIS Administration Heparin Sodium (Porcine) 5,000 units 05/09/25 06:00 05/10/25 14:02 Heparin Sod 5,000 Unit/0.5 Ml Vial SQ 06/08/25 05:59 5,000 units Q8 SOLIS Administration Hydralazine HCl 10 mg 05/09/25 16:56 05/09/25 18:52 Hydralazine Hcl 20 Mg/Ml Vial IV 06/08/25 16:59 10 mg Q8H PRN Administration SBP >185 Levothyroxine Sodium 75 mcg 05/09/25 06:30 05/10/25 06:29 Levothyroxine Sodium 75 Mcg Tablet PO 06/08/25 06:29 75 mcg DAILYBB SOLIS Administration Lisinopril 20 mg 05/09/25 09:00 05/10/25 09:03 Lisinopril 20 Mg Tab PO 06/08/25 08:59 20 mg DAILY SOLIS Administration Miscellaneous 1 each 05/09/25 08:00 05/10/25 09:01 Triumeq - Order Awaiting Action N/A 06/08/25 07:59 Not Given QS SOLIS Multivitamins/Minerals 1 tab 05/09/25 09:00 05/10/25 09:02 Cerovite Adv Formula Tab PO 06/08/25 08:59 1 tab DAILY SOLIS Administration Pravastatin Sodium 20 mg 05/09/25 21:00 05/09/25 20:01 Pravastatin Sod 20 Mg Tab PO 06/08/25 20:59 20 mg HS SOLIS Administration Senna/Docusate Sodium 1 tab 05/10/25 12:45 05/10/25 14:02 Docusate Sodium/Senna 50/8.6mg Tab PO 06/09/25 12:44 1 tab QAM SOLIS Administration Tamsulosin HCl 0.8 mg 05/09/25 21:00 05/09/25 20:01 Tamsulosin Hcl 0.4 Mg Cap PO 06/08/25 20:59 0.8 mg HS SOLIS Administration Vitamin D 50 mcg 05/09/25 09:00 05/10/25 09:02 Cholecalciferol 25 Mcg (1000 Units) Tab PO 06/08/25 08:59 50 mcg DAILY SOLIS Administration
[2025-05-10] MEDS: DOCUSATE SODIUM/SENNA 50/8.6MG TAB PO SCH (14:02)
[2025-05-10] MEDS: POLYETHYLENE (MIRALAX) 17 GM PACK PO SCH (17:31)
[2025-05-11 06:16] LABS: Hematocrit (blood only) 43.5 % (42.0-52.0); Hemoglobin 15.0 g/dl (14.0-18.0); Mean Corpuscular Hemoglobin 31.5 pg (25.0-34.0); Mean Corpuscular Volume 91.4 fL (80.0-100.0); Platelet Count 200 K/uL (130-400); RDW Standard Deviation 43.4 fL (36.4-46.3); Red Blood Count 4.76 M/uL (4.70-6.10); White Blood Count 9.25 K/ul (4.8-10.8)
[2025-05-11 06:43] LABS: Anion Gap 7.0 (3-11); Blood Urea Nitrogen 39.0 mg/dl (6-23); Calcium 8.5 mg/dl (8.6-10.3); Carbon Dioxide 26.0 mmol/L (21-32); Chloride 99.0 mmol/L (98-107); Creatinine Clr Calc Pharmacy 22.2 ml/min; Glucose 103.0 mg/dl (70-99(Fasting)); Magnesium 2.1 mg/dl (1.7-2.4); Potassium 4.0 mmol/L (3.5-5.1); Sodium 132.0 mmol/L (136-145)
[2025-05-11] MEDS: FINASTERIDE 5 MG TAB PO SCH (09:42)
[2025-05-11] MEDS: SODIUM CHLORIDE 0.9% 1,000 ML IV ONE (12:27)
[2025-05-11] MEDS: LACTULOSE SYRUP 20 GM/30 ML UDC PO ONE (13:31)
--- NOTE | 2025-05-11 17:15 | Hospitalist Progress Note ---
Date of Service May 11, 2025 Assessment & Plan (1) Hypertensive crisis: Plan: Mr. Mcguire is an 84 yo gentleman with medical history significant for hypertension, hyperlipidemia, HIV disease, CRI (baseline creatinine 1.5), hypothyroidism, GERD, BPH, atopic dermatitis admitted for hypertensive emergency. 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, held iso agustin started coreg and hydralazine, titrate to bp Cardiology: discontinue chlorthalidone, bid dosing of hydral to encourage compliance CTM #AGUSTIN on CKDIII baseline 1.5-->2.48 stop clorthalidone and monitor renal function encourage po intake hold lisinopril s/p 1 L NS likely iso hypertensive crisis #Constipation #GI upset nasuea resolved, noted stool burden on imaging start senna s/p lactulose #HLD continue statin #HIV disease, stable on regimen #hypothyroidism, euthyroid as of admission TSH DVT prophylaxis with heparin subcu DNR/DNI Admission and Anticipated Discharge Date Admission Date: May 11, 2025 Subjective Reports feeling fine today but still not passing stool, agreed to lactulose trial denies abdominal pain or other concerns brief episode of hypotension on toilet when trying to strain for bm Physical Exam Constitutional: WD/WN, vitals as above Respiratory: normal respiratory effort, lungs clear to auscultation Cardiovascular: RRR, no murmur, no edema Results & Data Results & Data Vital Signs (Past 12 Hours) Vital Signs Temp Pulse Pulse Resp BP BP Pulse Ox 05/11/25 15:20 36.5 C 58 L 22 123/69 96 05/11/25 12:22 99/59 L 96 05/11/25 11:18 36.4 C L 84 20 103/67 98 05/11/25 07:51 36.4 C L 88 21 122/73 98 05/11/25 07:30 88 O2 Del Method 05/11/25 15:20 Room Air 05/11/25 12:22 Room Air 05/11/25 11:18 Room Air 05/11/25 07:51 Room Air 05/11/25 07:30
[2025-05-11] MEDS: TRIUMEQ PO SCH (20:06)
[2025-05-11 21:13] LABS: Appearance Urine Clear (Clear); Bacteria Urine Automated None Seen (None Seen); Epithelial Cell Urine Auto 0-2 /hpf (0-2); Glucose Urine UA Negative (Negative); WBC Urine Automated 0-5 /hpf (0-5)
[2025-05-12] MEDS: LACTULOSE SYRUP 20 GM/30 ML UDC PO PRN (05:38)
[2025-05-12 09:05] LABS: Anion Gap 6.0 (3-11); Blood Urea Nitrogen 33.0 mg/dl (6-23); Calcium 8.2 mg/dl (8.6-10.3); Carbon Dioxide 26.0 mmol/L (21-32); Chloride 103.0 mmol/L (98-107); Creatinine Clr Calc Pharmacy 30.2 ml/min; Glucose 94.0 mg/dl (70-99(Fasting)); Magnesium 2.1 mg/dl (1.7-2.4); Potassium 3.8 mmol/L (3.5-5.1); Sodium 135.0 mmol/L (136-145)
--- NOTE | 2025-05-12 12:43 | XRay Report ---
Clinical history: Pain 2 views of the abdomen were obtained Findings: There are prominent air-filled loops of small and large bowel that may be due to ileus. No renal or ureteral calculi are seen. No foreign body is evident. There is lumbar degenerative disc disease Impression: Dilated bowel loops, which could be due to ileus. Obstruction cannot be excluded Electronically signed by Koby Lombardo 05-12-2025 12:43 PM
--- NOTE | 2025-05-12 13:20 | Hospitalist Progress Note ---
Date of Service May 12, 2025 Assessment & Plan (1) Hypertensive crisis: Plan: Mr. Mcguire is an 84 yo gentleman with medical history significant for hypertension, hyperlipidemia, HIV disease, CRI (baseline creatinine 1.5), hypothyroidism, GERD, BPH, atopic dermatitis admitted for hypertensive emergency. pressures better controlled however, now with AGUSTIN which is improving. Patient with urinary retention iso contipation. KUB ordered today and noted ileus. 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, held iso agustin started coreg and hydralazine, titrate to bp Cardiology: discontinue chlorthalidone, bid dosing of hydral to encourage compliance CTM #AGUSTIN on CKDIII baseline 1.5-->2.48 stop clorthalidone and monitor renal function encourage po intake hold lisinopril s/p 1 L NS likely iso hypertensive crisis Improving at this time #HLD continue statin #HIV disease, stable on regimen #hypothyroidism, euthyroid as of admission TSH DVT prophylaxis with heparin subcu DNR/DNI Admission and Anticipated Discharge Date Admission Date: May 11, 2025 Subjective Reports feeling bloated and uncomfortable this am denies nausea and vomiting reports some flatus earlier, but doesnt feel like passing gas in last couple hours Physical Exam Constitutional: WD/WN, vitals as above Respiratory: normal respiratory effort, lungs clear to auscultation Cardiovascular: RRR, no murmur, no edema Gastrointestinal (Abdomen): soft abdomen BS+, Results & Data Results & Data Vital Signs (Past 12 Hours) Vital Signs Temp Pulse Pulse Resp BP Pulse Ox O2 Del Method 05/12/25 12:12 36.5 C 70 18 119/74 98 Room Air 05/12/25 08:27 36.4 C L 75 18 143/78 H 95 Room Air 05/12/25 05:56 75 05/12/25 04:23 36.7 C 82 17 129/64 97 Room Air Laboratory Results [facility] 05/12/25 08:17 Sodium 135 L Potassium 3.8 Chloride 103 Carbon Dioxide 26 BUN 33 H Creatinine 1.82 H D Glucose 94 Calcium 8.2 L Urine 05/11/25 Range/Units 20:25 Urine Color Yellow Urine Appearance Clear (Clear) Urine pH 5.5 (4.5-7.5) Ur Specific [place] 1.013 (1.000-1.030) Urine Protein Negative (Negative) Urine Glucose (UA) Negative (Negative) Medications Administered Home Medications Medication Instructions Recorded Confirmed Last Taken abacavir 600 mg-dolutegravir 50 1 tab PO DAILY 09/01/23 05/09/25 Unknown mg-lamivudine 300 mg tablet (Triumeq) cholecalciferol (vitamin D3) 25 50 mcg PO DAILY 09/01/23 05/09/25 Unknown mcg (1,000 unit) capsule levothyroxine 75 mcg capsule 75 mcg PO DAILY 09/01/23 05/09/25 Unknown lisinopril 20 mg tablet 20 mg PO DAILY 09/01/23 05/09/25 Unknown pravastatin 20 mg tablet 20 mg PO HS 09/01/23 05/09/25 Unknown tamsulosin 0.4 mg capsule 0.8 mg PO HS 09/01/23 05/09/25 Unknown lidocaine 5 % topical ointment 1 applic topical BID 05/09/25 05/09/25 Unknown meloxicam 7.5 mg tablet 7.5 mg PO BID 05/09/25 05/09/25 Unknown methyl salicylate-menthol 29 %-7.6 1 applic topical BID PRN Pain 05/09/25 05/09/25 Unknown % topical ointment (Icy Hot) multivitamin-minerals 1 tab PO DAILY 05/09/25 05/09/25 Unknown no.36-iron,carbonyl-FA 16 mg iron-0.38 mg tablet vitamin A and D 1 applic topical BID 05/09/25 05/09/25 Unknown Active Medications Generic Name Dose Route Start Last Admin Trade Name Freq PRN Reason Stop Dose Admin Carvedilol 12.5 mg 05/11/25 17:00 05/12/25 08:16 Carvedilol 12.5 Mg Tab PO 06/10/25 16:59 12.5 mg BIDM SOLIS Administration Finasteride 5 mg 05/11/25 09:00 05/12/25 08:16 Finasteride 5 Mg Tab PO 06/10/25 08:59 5 mg QAM SOLIS Administration Heparin Sodium (Porcine) 5,000 units 05/09/25 06:00 05/12/25 14:13 Heparin Sod 5,000 Unit/0.5 Ml Vial SQ 06/08/25 05:59 5,000 units Q8 SOLIS Administration Hydralazine HCl 10 mg 05/09/25 16:56 05/09/25 18:52 Hydralazine Hcl 20 Mg/Ml Vial IV 06/08/25 16:59 10 mg Q8H PRN Administration SBP >185 Hydralazine HCl 25 mg 05/11/25 21:00 05/12/25 08:19 Hydralazine Hcl 25 Mg Tab PO 06/10/25 20:59 25 mg BID SOLIS Administration Sodium Chloride 1,000 mls @ 125 mls/hr 05/12/25 13:30 05/12/25 14:16 Nss IV 05/15/25 13:29 125 mls/hr .Q8H SOLIS Administration Lactulose 20 gm 05/11/25 17:13 05/12/25 05:38 Lactulose Syrup 20 Gm/30 Ml Udc PO 06/10/25 17:12 20 gm DAILY PRN Administration constipation Levothyroxine Sodium 75 mcg 05/09/25 06:30 05/12/25 05:38 Levothyroxine Sodium 75 Mcg Tablet PO 06/08/25 06:29 75 mcg DAILYBB SOLIS Administration Lisinopril 20 mg 05/09/25 09:00 05/10/25 09:03 Lisinopril 20 Mg Tab PO 06/08/25 08:59 20 mg DAILY SOLIS Administration Multivitamins/Minerals 1 tab 05/09/25 09:00 05/12/25 08:18 Cerovite Adv Formula Tab PO 06/08/25 08:59 1 tab DAILY SOLIS Administration Nf Pom--Triumeq 600- 1 each 05/11/25 20:00 05/12/25 08:19 50-300 PO 06/10/25 19:59 1 tab DAILY SOLIS Administration Protocol Polyethylene Glycol 17 gm 05/10/25 14:45 05/12/25 08:24 Polyethylene (Miralax) 17 Gm Pack PO 06/09/25 14:44 17 gm DAILY SOLIS Administration Pravastatin Sodium 20 mg 05/09/25 21:00 05/11/25 20:10 Pravastatin Sod 20 Mg Tab PO 06/08/25 20:59 20 mg HS SOLIS Administration Senna/Docusate Sodium 1 tab 05/10/25 12:45 05/12/25 08:24 Docusate Sodium/Senna 50/8.6mg Tab PO 06/09/25 12:44 1 tab QAM SOLIS Administration Tamsulosin HCl 0.8 mg 05/09/25 21:00 05/11/25 20:10 Tamsulosin Hcl 0.4 Mg Cap PO 06/08/25 20:59 0.8 mg HS SOLIS Administration Vitamin D 50 mcg 05/09/25 09:00 05/12/25 08:17 Cholecalciferol 25 Mcg (1000 Units) Tab PO 06/08/25 08:59 50 mcg DAILY SOLIS Administration
[2025-05-12] MEDS: SODIUM CHLORIDE 0.9% 1,000 ML IV SCH (14:16)
--- NOTE | 2025-05-13 08:24 | XRay Report ---
HISTORY: Ileus TECHNIQUE: Portable supine AP abdominal radiographs, 2 views. COMPARISON: Abdominal radiograph dated 05/12/2025. Abdominal CT dated 05/09/2025. FINDINGS: Gaseous distention of the bowel is mildly improved since the prior study. No dilated loops of small bowel are appreciated.No obvious free air or pneumatosis. No suspicious calcifications. Degenerative changes of the spine and pelvis. Lung bases are unremarkable. IMPRESSION: Improving gaseous distention of the bowel. No dilated loops of small bowel to suggest small bowel obstruction. Electronically signed by Peter Cook 05-13-2025 08:24 AM
[2025-05-13 08:38] LABS: Hematocrit (blood only) 41.9 % (42.0-52.0); Hemoglobin 14.2 g/dl (14.0-18.0); Mean Corpuscular Hemoglobin 31.8 pg (25.0-34.0); Mean Corpuscular Volume 93.9 fL (80.0-100.0); Platelet Count 180 K/uL (130-400); RDW Standard Deviation 45.3 fL (36.4-46.3); Red Blood Count 4.46 M/uL (4.70-6.10); White Blood Count 7.21 K/ul (4.8-10.8)
[2025-05-13 08:54] LABS: Anion Gap 7.0 (3-11); Blood Urea Nitrogen 24.0 mg/dl (6-23); Calcium 8.0 mg/dl (8.6-10.3); Carbon Dioxide 22.0 mmol/L (21-32); Chloride 109.0 mmol/L (98-107); Creatinine Clr Calc Pharmacy 37.7 ml/min; Glucose 85.0 mg/dl (70-99(Fasting)); Magnesium 2.0 mg/dl (1.7-2.4); Potassium 4.3 mmol/L (3.5-5.1); Sodium 138.0 mmol/L (136-145)
[2025-05-13] MEDS: COUGH DROP (SUGAR FREE) LOZ 24 LOZ/1 BOX BUCCAL ONE (09:13)
[2025-05-13] MEDS: POLYETHYLENE (MIRALAX) 17 GM PACK PO SCH ×2 (10:19→13:23)
--- NOTE | 2025-05-13 12:48 | Hospitalist Progress Note ---
Date of Service May 13, 2025 Assessment & Plan (1) Hypertensive crisis: Plan: Mr. Mcguire is an 84 yo gentleman with medical history significant for hypertension, hyperlipidemia, HIV disease, CRI (baseline creatinine 1.5), hypothyroidism, GERD, BPH, atopic dermatitis admitted for hypertensive emergency. pressures better controlled however, now with AGUSTIN which is resolved, with cr at patient baseline. Patient with urinary retention iso constipation. KUB ordered 05/12 and noted ileus possible ileus. patient transitioned to IVF and NPO. As of this am, repeat KUB revealed resolution of gaseous distention and patient reports abdomen. Plan for void trial. Once patient able to tolerate diet, will discharge. #Possible ileus #Constipation #GI upset nausea resolved, noted stool burden on imaging from admission started bowel regimen, but reports still feeling consipated KUB revealed dilated loops on 05/12. 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, held iso agustin started coreg and hydralazine, titrate to bp Cardiology: discontinue chlorthalidone, bid dosing of hydral to encourage compliance CTM #AGUSTIN on CKDIII baseline 1.5-->2.48 -->1.4 stop clorthalidone and monitor renal function encourage po intake remove vidal #HLD continue statin #HIV disease, stable on regimen #hypothyroidism, euthyroid as of admission TSH DVT prophylaxis with heparin subcu DNR/DNI Admission and Anticipated Discharge Date Admission Date: May 11, 2025 Subjective NAEO reports stomach feels much improved today, but no appetite reports passing flatus denies abdominal pain on exam, states he needs to move Physical Exam Constitutional: WD/WN, vitals as above Respiratory: normal respiratory effort, lungs clear to auscultation Gastrointestinal (Abdomen): normal bowel sounds, soft, nontender, no hepatosplenomegaly Results & Data Results & Data Vital Signs (Past 12 Hours) Vital Signs Temp Pulse Pulse Resp BP Pulse Ox O2 Del Method 05/13/25 11:35 36.7 C 72 18 132/73 96 Room Air 05/13/25 08:13 36.7 C 73 18 147/76 H 96 Room Air 05/13/25 05:50 74 05/13/25 02:27 36.5 C 75 18 123/68 97 Room Air Laboratory Results Short CBC 05/13/25 Range/Units 08:06 WBC 7.21 (4.8-10.8) K/ul Hgb 14.2 (14.0-18.0) g/dl Hct 41.9 L (42.0-52.0) % Plt Count 180 (130-400) K/uL BMP 05/13/25 08:06 Sodium 138 Potassium 4.3 Chloride 109 H Carbon Dioxide 22 BUN 24 H Creatinine 1.46 H D Glucose 85 Calcium 8.0 L Medications Administered Home Medications Medication Instructions Recorded Confirmed Last Taken abacavir 600 mg-dolutegravir 50 1 tab PO DAILY 09/01/23 05/09/25 Unknown mg-lamivudine 300 mg tablet (Triumeq) cholecalciferol (vitamin D3) 25 50 mcg PO DAILY 09/01/23 05/09/25 Unknown mcg (1,000 unit) capsule levothyroxine 75 mcg capsule 75 mcg PO DAILY 09/01/23 05/09/25 Unknown lisinopril 20 mg tablet 20 mg PO DAILY 09/01/23 05/09/25 Unknown pravastatin 20 mg tablet 20 mg PO HS 09/01/23 05/09/25 Unknown tamsulosin 0.4 mg capsule 0.8 mg PO HS 09/01/23 05/09/25 Unknown lidocaine 5 % topical ointment 1 applic topical BID 05/09/25 05/09/25 Unknown meloxicam 7.5 mg tablet 7.5 mg PO BID 05/09/25 05/09/25 Unknown methyl salicylate-menthol 29 %-7.6 1 applic topical BID PRN Pain 05/09/25 05/09/25 Unknown % topical ointment (Icy Hot) multivitamin-minerals 1 tab PO DAILY 05/09/25 05/09/25 Unknown no.36-iron,carbonyl-FA 16 mg iron-0.38 mg tablet vitamin A and D 1 applic topical BID 05/09/25 05/09/25 Unknown Active Medications Generic Name Dose Route Start Last Admin Trade Name Freq PRN Reason Stop Dose Admin Carvedilol 12.5 mg 05/11/25 17:00 05/13/25 08:46 Carvedilol 12.5 Mg Tab PO 06/10/25 16:59 12.5 mg BIDM SOLIS Administration Finasteride 5 mg 05/11/25 09:00 05/13/25 08:48 Finasteride 5 Mg Tab PO 06/10/25 08:59 5 mg QAM SOLIS Administration Heparin Sodium (Porcine) 5,000 units 05/09/25 06:00 05/13/25 05:38 Heparin Sod 5,000 Unit/0.5 Ml Vial SQ 06/08/25 05:59 5,000 units Q8 SOLIS Administration Hydralazine HCl 10 mg 05/09/25 16:56 05/09/25 18:52 Hydralazine Hcl 20 Mg/Ml Vial IV 06/08/25 16:59 10 mg Q8H PRN Administration SBP >185 Hydralazine HCl 25 mg 05/11/25 21:00 05/13/25 08:46 Hydralazine Hcl 25 Mg Tab PO 06/10/25 20:59 25 mg BID SOLIS Administration Sodium Chloride 1,000 mls @ 125 mls/hr 05/12/25 13:30 05/13/25 05:04 Nss IV 05/15/25 13:29 125 mls/hr .Q8H SOLIS Administration Lactulose 20 gm 05/11/25 17:13 05/12/25 05:38 Lactulose Syrup 20 Gm/30 Ml Udc PO 06/10/25 17:12 20 gm DAILY PRN Administration constipation Levothyroxine Sodium 75 mcg 05/09/25 06:30 05/13/25 05:38 Levothyroxine Sodium 75 Mcg Tablet PO 06/08/25 06:29 75 mcg DAILYBB SOLIS Administration Lisinopril 20 mg 05/09/25 09:00 05/10/25 09:03 Lisinopril 20 Mg Tab PO 06/08/25 08:59 20 mg DAILY SOLIS Administration Multivitamins/Minerals 1 tab 05/09/25 09:00 05/13/25 08:49 Cerovite Adv Formula Tab PO 06/08/25 08:59 1 tab DAILY SOLIS Administration Nf Pom--Triumeq 600- 1 each 05/11/25 20:00 05/13/25 08:49 50-300 PO 06/10/25 19:59 1 tab DAILY SOLIS Administration Protocol Polyethylene Glycol 17 gm 05/13/25 09:00 05/13/25 10:19 Polyethylene (Miralax) 17 Gm Pack PO 06/12/25 08:59 Not Given BID SOLIS Pravastatin Sodium 20 mg 05/09/25 21:00 05/12/25 20:57 Pravastatin Sod 20 Mg Tab PO 06/08/25 20:59 20 mg HS SOLIS Administration Senna/Docusate Sodium 1 tab 05/10/25 12:45 05/13/25 08:46 Docusate Sodium/Senna 50/8.6mg Tab PO 06/09/25 12:44 1 tab QAM SOLIS Administration Tamsulosin HCl 0.8 mg 05/09/25 21:00 05/12/25 20:58 Tamsulosin Hcl 0.4 Mg Cap PO 06/08/25 20:59 0.8 mg HS SOLIS Administration Vitamin D 50 mcg 05/09/25 09:00 05/13/25 08:47 Cholecalciferol 25 Mcg (1000 Units) Tab PO 06/08/25 08:59 50 mcg DAILY SOLIS Administration
[2025-05-14 06:29] LABS: Hematocrit (blood only) 40.1 % (42.0-52.0); Hemoglobin 13.8 g/dl (14.0-18.0); Mean Corpuscular Hemoglobin 31.5 pg (25.0-34.0); Mean Corpuscular Volume 91.6 fL (80.0-100.0); Platelet Count 217 K/uL (130-400); RDW Standard Deviation 41.9 fL (36.4-46.3); Red Blood Count 4.38 M/uL (4.70-6.10); White Blood Count 8.36 K/ul (4.8-10.8)
[2025-05-14 06:47] LABS: Anion Gap 8.0 (3-11); Blood Urea Nitrogen 15.0 mg/dl (6-23); Calcium 8.4 mg/dl (8.6-10.3); Carbon Dioxide 21.0 mmol/L (21-32); Chloride 109.0 mmol/L (98-107); Creatinine Clr Calc Pharmacy 39.8 ml/min; Glucose 116.0 mg/dl (70-99(Fasting)); Magnesium 1.9 mg/dl (1.7-2.4); Potassium 4.0 mmol/L (3.5-5.1); Sodium 138.0 mmol/L (136-145)
[2025-05-14] MEDS ORDERED: SODIUM PHOSPHATE 3 MMOL/1 ML INFUSION IV STA (09:40)
[2025-05-14] MEDS: SODIUM PHOSPHATE 9 MMOL in SODIUM CHLORIDE 0.9% 250 ML IV ONE (10:39)
[2025-05-14 11:37] VITALS: O2SAT 99
[2025-05-14 13:48] LABS: Appearance Urine Clear (Clear); Glucose Urine UA Negative (Negative)
--- NOTE | 2025-05-14 14:01 | Hospitalist Progress Note ---
Date of Service May 14, 2025 Assessment & Plan (1) Hypertensive crisis: Plan: Mr. Mcguire is an 84 yo gentleman with medical history significant for hypertension, hyperlipidemia, HIV disease, CRI (baseline creatinine 1.5), hypothyroidism, GERD, BPH, atopic dermatitis admitted for hypertensive emergency. pressures better controlled however, now with AGUSTIN which is resolved, with cr at patient baseline. Patient with urinary retention iso constipation. KUB ordered 05/12 and noted ileus possible ileus. patient transitioned to IVF and NPO. As of this am, repeat KUB revealed resolution of gaseous distention and patient reports abdomen. Void trial 05/13. Patient urinating but with PVR reported to be >500 per nursing. #urinary retention #AGUSTIN on CKDIII baseline 1.5-->2.48 -->1.4 stop clorthalidone, holding lisinopril encourage po intake remove vidal on 05/13, however noted to have PVR >500cc and that his stream is "weird" no dysuria noted started finasteride this admission continued on tamsulosin given patient in [facility], ideally would not want to d/c with vidal without establishing with Urology and clear plan -Urology consult #Possible ileus #Constipation #GI upset nausea resolved, noted stool burden on imaging from admission started bowel regimen, but reports still feeling consipated KUB revealed dilated loops on 05/12. 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, held iso agustin started coreg and hydralazine, titrate to bp Cardiology: discontinue chlorthalidone, bid dosing of hydral to encourage compliance CTM #HLD continue statin #HIV disease, stable on regimen #hypothyroidism, euthyroid as of admission TSH DVT prophylaxis with heparin subcu DNR/DNI Admission and Anticipated Discharge Date Admission Date: May 11, 2025 Subjective Reports he his ready to advance diet Reports his urination "feels off" No more abdominal pain Physical Exam Constitutional: WD/WN, vitals as above Respiratory: normal respiratory effort, lungs clear to auscultation Cardiovascular: RRR, no murmur, no edema Gastrointestinal (Abdomen): normal bowel sounds, soft, nontender, no hepatosplenomegaly Results & Data Results & Data Vital Signs (Past 12 Hours) Vital Signs Temp Pulse Pulse Resp BP Pulse Ox O2 Del Method 05/14/25 11:36 36.9 C 68 20 148/75 H 99 Room Air 05/14/25 09:02 76 05/14/25 07:54 36.9 C 86 18 106/62 98 Room Air 05/14/25 03:45 36.8 C 78 20 164/69 H 98 Room Air
[2025-05-14] MEDS ORDERED: POLYETHYLENE (MIRALAX) 17 GM PACK PO PRN (14:07)
--- NOTE | 2025-05-14 14:42 | Urology Consultation ---
<Statement entered by Suraj Kc MD - 05/15/25 12:37> Chart reviewed plan reviewed and agree as written. Date of Consultation May 14, 2025 Assessment & Plan (1) Urinary retention: Plan 84yo male admitted 05/09/[address] [facility] in the setting of abdominal pain, N/V and severely elevated blood pressure - Urology has been consulted for ongoing urinary retention issues. Pt afebrile, hypertensive, not tachycardic. Labs-no leukocytosis, creatinine 1.39 (AGUSTIN has resolved). Urinalysis 05/14 without signs of infection or blood. CT abdomen pelvis (05/09/2025) showed no stones or hydronephrosis, Prostatomegaly indenting the base of the urinary bladder, and bladder wall thickening. Patient had a Hernandez catheter from 05/11 - 05/13 for management of urinary retention. Since catheter removal, he has been voiding small amounts and continues to have high PVRs. Was straight catheterized today for >600ml. Urinary retention likely multifactorial including underlying BPH, constipation, acute illness, or other. Discussed options including replacement of Hernandez catheter vs intermittent straight catheterization PRN - He is considering options. For now, he would like to try continuing to void spontaneously - Recommend monitoring with bladder scan/PVRs and straight cath PRN. Continue dual therapy for the prostate with tamsulosin and finasteride. Continue bowel regimen. Will arrange outpatient follow-up with our service. Urology will sign-off - please contact us with any questions/concerns or changes in patient status. History of Present Illness Attending Physician: Cielo Camara MD History of Present Illness 84 year old incarcerated male who presented to the ED on 05/09/2025 with abdominal pain, nausea and vomiting and was admitted with hypertensive emergency. He was found to have possible ileus, constipation, and urinary retention. He had a Hernandez catheter placed on 05/11/2025 for management of urinary retention which was removed for void trial on 05/13/2025. Since cath removal, he has voided small amounts and continues to have high PVRs. He is on Tamsulosin and Finasteride. Continues on bowel regimen. Had AGUSTIN on CKD on admit (now resolved). CT abdomen pelvis (05/09/2025) showed no stones or hydronephrosis, Prostatomegaly indenting the base of the urinary bladder, and bladder wall thickening. Urinalysis 05/09/2025 showed trace blood, 02 RBC Urinalysis 05/11/2025 showed trace blood, 35 RBC Urinalysis 05/14/2025 without signs of infection or blood Patient was seen at bedside today. He is awake and resting in bed on arrival. No acute distress. x2 Guards at bedside. Since cath removal, he reports a weak stream and feeling the need to strain with voiding. No hematuria or dysuria. Currently denies any bladder pain or pressure. He was straight cathed by nursing recently for >600ml. He denies prior urological history. Allergies Allergy/AdvReac Type Severity Reaction Status Date / Time No Known Allergies Allergy Verified 05/09/25 00:42 Home Medications Medication Instructions Recorded Confirmed Type abacavir 600 mg-dolutegravir 50 1 tab PO DAILY 09/01/23 05/09/25 History mg-lamivudine 300 mg tablet (Triumeq) cholecalciferol (vitamin D3) 25 50 mcg PO DAILY 09/01/23 05/09/25 History mcg (1,000 unit) capsule levothyroxine 75 mcg capsule 75 mcg PO DAILY 09/01/23 05/09/25 History pravastatin 20 mg tablet 20 mg PO HS 09/01/23 05/09/25 History tamsulosin 0.4 mg capsule 0.8 mg PO HS 09/01/23 05/09/25 History lidocaine 5 % topical ointment 1 applic topical BID 05/09/25 05/09/25 History methyl salicylate-menthol 29 %-7.6 1 applic topical BID PRN Pain 05/09/25 05/09/25 History % topical ointment (Icy Hot) multivitamin-minerals 1 tab PO DAILY 05/09/25 05/09/25 History no.36-iron,carbonyl-FA 16 mg iron-0.38 mg tablet vitamin A and D 1 applic topical BID 05/09/25 05/09/25 History carvedilol 25 mg tablet 25 mg PO BIDM #30 tabs 05/14/25 Rx finasteride 5 mg tablet 5 mg PO QAM #30 tabs 05/14/25 Rx hydralazine 25 mg tablet 25 mg PO BID #30 tabs 05/14/25 Rx polyethylene glycol 3350 17 gram 17 g PO DAILY PRN constipation #30 05/14/25 Rx oral powder packet ea sennosides 8.6 mg-docusate sodium 1 tab PO QAM #30 tabs 05/14/25 Rx 50 mg tablet Patient History Social History Smoking Status: Former smoker Hx Alcohol Use: No (incarcerated) Hx Substance Use: No (incarcerated) Preferred Language: Malay Communication Ability: Effective Malt [employer] Required: No Beliefs That Will Affect Care: None Current Living Situation: Other Current Living Situation Comment: [facility] Other Information That Helps Us Care for You: No Feels Safe at Home: Yes Safety Concerns: Feels Safe At This Time Review of Systems Review of Systems: All systems reviewed & are unremarkable except as noted in HPI & below Physical Exam Constitutional: no acute distress Respiratory: no respiratory distress and no labored breathing Musculoskeletal: Head/Neck/Chest: normocephalic Neurologic: awake Psychiatric: A+Ox3, euthymic affect Results & Data Vital Signs (Past 12 Hours) Vital Signs Temp Pulse Pulse Resp BP Pulse Ox O2 Del Method 05/14/25 11:36 36.9 C 68 20 148/75 H 99 Room Air 05/14/25 09:02 76 05/14/25 07:54 36.9 C 86 18 106/62 98 Room Air 05/14/25 03:45 36.8 C 78 20 164/69 H 98 Room Air PG Care Time/CCT Total # of Minutes Spent Total Time Spent with Patient: Total time spent is greater than 50% in coordination of care (as documented) at patient's floor/unit and/or counseling patient: Coding Level of Care Code 77616 INT INP/OBS CARE 2/55MIN Diagnoses Urinary retention R33.9
[2025-05-14 15:13] VITALS: RESP 18; TEMP 97.7
--- NOTE | 2025-05-14 17:42 | Discharge Summary ---
Discharge Summary Date of Service May 14, 2025 Principal Dx & Hospital Course #1 = Principal Diagnosis (1) Hypertensive crisis: Mr. Mcguire is an 84 yo gentleman with medical history significant for hypertension, hyperlipidemia, HIV disease, CRI (baseline creatinine 1.5), hypothyroidism, GERD, BPH, atopic dermatitis admitted for hypertensive emergency. pressures better controlled however, now with AGUSTIN which is resolved, with cr at patient baseline. Patient with urinary retention iso constipation. KUB ordered 05/12 and noted ileus possible ileus. patient transitioned to IVF and NPO. As of this am, repeat KUB revealed resolution of gaseous distention and patient reports abdomen. Void trial 05/13. Patient urinating but with PVR reported to be >500 per nursing. Urology consulted, vidal placed with plans for void trial in 1 week and follow up On day of discharge, patient was eating well, denying any abdominal pain, or other acute concerns. #urinary retention #AGUSTIN on CKDIII baseline 1.5-->2.48 -->1.4 stop clorthalidone, holding lisinopril encourage po intake remove vidal on 05/13, however noted to have PVR >500cc and that his stream is "weird" no dysuria noted continued on tamsulosin and finasteride given patient in [facility], ideally would not want to d/c with vidal without establishing with Urology and clear plan -Urology consult: vidal in place, will do void trial on follow up -[facility] notified #Possible ileus #Constipation #GI upset nausea resolved, noted stool burden on imaging from admission started bowel regimen, but reports still feeling consipated KUB revealed dilated loops on 05/12. however, resolved on 05/13 Advance to regular diet stop IVF continue bowel regimen #Hypertensive emergency resolved #Elevated trop trop demand iso htn crisis s/p brief nicardipine drip eCHO reviewed, EF 55-60%, no wall motion abnormality noted resumed PROTOTYPER lisinopril, held iso agustin contninue Cardiology: discontinue chlorthalidone, bid dosing of hydral to encourage compliance #HLD continue statin #HIV disease, stable on regimen #hypothyroidism, euthyroid as of admission TSH Notes For Next Care Provider vidal placed 05/14 Medication Changes From Visit Finasteride 5mg daily Coreg 25 mg bid hydralazine 25mgbid Admission HPI Per Admitting Provider History obtained from patient and records. Medical history significant for hypertension, hyperlipidemia, HIV disease, CRI (baseline creatinine 1.5), hypothyroidism, GERD, BPH, atopic dermatitis. 3 days history of achy abdominal pain associated with some change in bowel habits, nausea, vomiting. No fever, no chills. Patient denies headache, chest pain, SOB. Dizziness symptoms. SBP 200s at the [facility]. Patient directed to ER for evaluation. Nicardipine drip initiated at the ER. SBP currently 160s. 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 Admission Exam Per Admitting Provider GENERAL: Comfortable, pleasant, no respiratory distress SKIN: Normal color, warm HEENT: [place] palpebral conjunctivae, no ptosis, dry buccal mucosa NECK : Supple, no tenderness CHEST : CTA, no tenderness HEART : Tachycardic, no obvious murmurs ABDOMEN: Some distention, minimal epigastric tenderness EXTREMITIES : No LE swelling/tenderness, palpable pulses, no other conspicuous deformities noted NEUROLOGIC : Coherent, no facial asymmetry, no other gross focality Discharge Exam Constitutional WD/WN, vitals as above Respiratory normal respiratory effort, lungs clear to auscultation Cardiovascular RRR, no murmur, no edema Gastrointestinal (Abdomen) normal bowel sounds, soft, nontender, no hepatosplenomegaly Updated Medication List Medication Instructions Recorded Confirmed Type abacavir 600 mg-dolutegravir 50 1 tab PO DAILY 09/01/23 05/09/25 History mg-lamivudine 300 mg tablet (Triumeq) cholecalciferol (vitamin D3) 25 50 mcg PO DAILY 09/01/23 05/09/25 History mcg (1,000 unit) capsule levothyroxine 75 mcg capsule 75 mcg PO DAILY 09/01/23 05/09/25 History pravastatin 20 mg tablet 20 mg PO HS 09/01/23 05/09/25 History tamsulosin 0.4 mg capsule 0.8 mg PO HS 09/01/23 05/09/25 History lidocaine 5 % topical ointment 1 applic topical BID 05/09/25 05/09/25 History methyl salicylate-menthol 29 %-7.6 1 applic topical BID PRN Pain 05/09/25 05/09/25 History % topical ointment (Icy Hot) multivitamin-minerals 1 tab PO DAILY 05/09/25 05/09/25 History no.36-iron,carbonyl-FA 16 mg iron-0.38 mg tablet vitamin A and D 1 applic topical BID 05/09/25 05/09/25 History carvedilol 25 mg tablet 25 mg PO BIDM #30 tabs 05/14/25 Rx finasteride 5 mg tablet 5 mg PO QAM #30 tabs 05/14/25 Rx hydralazine 25 mg tablet 25 mg PO BID #30 tabs 05/14/25 Rx polyethylene glycol 3350 17 gram 17 g PO DAILY PRN constipation #30 05/14/25 Rx oral powder packet ea sennosides 8.6 mg-docusate sodium 1 tab PO QAM #30 tabs 05/14/25 Rx 50 mg tablet Hospital Stay Data Consultations 05/09/25 19:07 Consult Cardiology Routine 05/14/25 13:57 Consult Urology Routine Diagnostic Imagining Performed 05/09/25 00:56 CT Abd and Pelvis [CT abd pelvis IV con only] Stat 05/10/25 US duplex renal art/vein BI Routine Pending Results Patient Have Any Pending Studies at Discharge: No Discharge Instructions Given to Patient (Per Discharging Provider) You were admitted for abdominal pain and hypertension You had a kidney injury and an ileus (lazy colon) that contributed to your prolonged stay The kidney injury improved but it is important you avoid NSAIDs (meloxicam, ibuprofen, naproxen); your lisinopril was also discontinued Your blood pressure was controlled with hydralazine 25mg two times a day and COreg 25mg two times a day You were noted to have urinary retention. A vidal was placed and you were seen by Urology because after its removal you were still retaining a lot of urine. You will continue tamsulosin. You were started on finasteride to help with BPH (enlarged prostate) Urology will arrange outpatient follow up for void trial Total Time Total Time Spent Total Time Spent (In Minutes): 55
[2025-05-14 17:48] VITALS: BP 123/69; PULSE 73
== END 2025-05-14 18:49 | DRG 305 ==
LOC: ED 00:11 → EDINP 00:11 → 2S 05:24
DX: Z66 Do not resuscitate; I16.9 Hypertensive crisis, unspecified; Z87.891 Personal history of nicotine dependence; Z79.890 Hormone replacement therapy; E78.5 Hyperlipidemia, unspecified; K59.00 Constipation, unspecified; I12.9 Hypertensive chronic kidney disease with stage 1 through stage 4 chronic kidney disease, or unspecified chronic kidney disease; B20 Human immunodeficiency virus [HIV] disease; N17.9 Acute kidney failure, unspecified; E03.9 Hypothyroidism, unspecified; R33.9 Retention of urine, unspecified; Z91.148 Patient's other noncompliance with medication regimen for other reason; T46.4X6A Underdosing of angiotensin-converting-enzyme inhibitors, initial encounter; Z79.899 Other long term (current) drug therapy; N18.30 Chronic kidney disease, stage 3 unspecified; K56.7 Ileus, unspecified